=== PATIENT | female | born 1955 | race Two or more races ===

== ENCOUNTER 2023-11-06 12:21 | Emergency (ER) | payer SELFPAY ==
--- NOTE | ~2023-11-06 | CT_ITS ---
EXAMINATION: CT CHEST WITHOUT CONTRAST CLINICAL INFORMATION: Left chest, left nipple pain and discharge COMPARISON: None available. TECHNIQUE: Multidetector volumetric CT imaging of the chest was done. Axial MIP volume rendering provided. Sagittal and coronal reformatted images were obtained. This CT examination was performed using dose optimization techniques as appropriate, variously including the following: *Automated exposure control *Adjustment of mA and/or kV according to patient size (this includes techniques or standardized protocols for targeted exams where dose is matched to indication/reason for exam; i.e. extremities or head) *Use of iterative reconstruction technique DLP: 253 mGy-cm FINDINGS: LUNGS: Sagittally oriented linear atelectasis is seen along the medial pleural border of bilateral lung bases. PLEURA: No pleural effusion or pneumothorax is seen. PERICARDIUM: No pericardial effusion is seen. MEDIASTINUM AND SAE: Inadequate evaluation of the mediastinal and hilar lymph nodes due to absence of IV contrast filling the surrounding blood vessels. TRACHEOBRONCHIAL TREE: Trachea and bilateral mainstem bronchi are patent. THORACIC AORTA: The thoracic aorta is normal in size and smoothly patent. CORONARY ARTERY CALCIFICATIONS: None PULMONARY ARTERIES: The main pulmonary arteries appear to be normal in size. CHEST WALL AND LOWER NECK: The right nipple is inverted. The left nipple is inverted with subtle asymmetric lateral alveolar skin thickening. There is otherwise no asymmetric suspicious mass lesion in the subareolar region. No abnormally enlarged lymph nodes could be found. The subcutaneous and muscular chest wall are intact with no focal lesion. No abnormal mass lesion could be seen in the visualized lower neck. BONES: Multilevel level bridging anterior syndesmophytes forming flow ossification is seen in the thoracic spine, consistent with diffuse idiopathic skeletal hyperostosis. No fracture or dislocation. No focal bone lesion diagnostic of metastatic disease could be seen in the thorax. VISUALIZED UPPER ABDOMEN: Bilateral adrenal glands are not enlarged. CT/CT chest wo IV con IMPRESSION: 1. No specific breast mass or nipple abscess could be seen. 2. Bilateral medial subpleural subsegmental atelectasis or fibrotic scar is seen. 3. No evidence of thoracic aortic aneurysm is seen. Fleischner guidelines were followed.
--- NOTE | ~2023-11-06 | US_ITS ---
EXAMINATION: US DIAGNOSTIC ULTRASOUND BREAST, LEFT CLINICAL INFORMATION: Blood from left nipple. Concern for abscess.. COMPARISON: None available. TECHNIQUE: Ultrasound of the breast is performed with real-time burton scale imaging and color Doppler. FINDINGS: There are dilated ducts leading to the nipple in the medial side of the breast. Echogenic material within these dilated ducts. Largest measures 2 cm in length by 0.5 x 0.6 cm and may be a mass. On color Doppler there is no vascular flow within this material. No abscess. No focal fluid collection. Results are discussed with the patient at time of visit. US/US breast LT limited IMPRESSION: 1. Dilated ducts leading to the nipple in the medial side of the breast. There is echogenic material within these dilated ducts. Largest measures 2 x 0.5 x 0.6 cm and may be a mass. No abscess. 2. BI-RADS 4: Suspicious. ASSESSMENT: BI-RADS 4 - Suspicious finding RECOMMENDATION: Surgical Consult This patient's information was entered into a reminder system with a target due date for their next mammogram.
[2023-11-06 12:24] VITALS: BP 177/81; PULSE 91; RESP 18; TEMP 36.1; O2SAT 95; BMI 30.6
--- NOTE | 2023-11-06 12:24 | ED_ITS ---
HPI - General Adult General Chief complaint: General Medical Stated complaint: L breast pain/Vomiting Time Seen by Provider: 11/06/23 20:40 Source: patient and medical interpreter (all interactions with this patient were facilitated with an [facility] interpreter for the deaf) Mode of arrival: ambulatory Limitations: language barrier (all interactions with this patient were facilitated with an [facility] interpreter for the deaf) History of Present Illness HPI narrative: Patient is a 68 year old assigned female at with no reported medical history presenting to the emergency department today with pain in her left breast and bloody discharge from her left nipple. Patient states that over the last 3 days, she has had left breast pain and bloody discharge from her left nipple. Patient states that she has a family history of breast cancer. Patient states that [place] Patient denies any dizziness, lightheadedness, abdominal pain, nausea, vomiting, fever, chills, blurry vision, double vision, loss of vision, chest pain, difficulty breathing, shortness of breath, back pain, night sweats, pain with urination, increased urinary frequency, increased urinary urgency, blood in her urine or stool, syncope or a near syncopal episode, recent trauma or falls, bowel incontinence, bladder incontinence, bowel retention, bladder retention, or any other complaints at this time. Onset (ago): day(s) (3) Location: left (breast) Severity: mild Relieving factors: none Exacerbating factors: none Associated symptoms: denies other symptoms Treatments prior to arrival: none Related Data Allergies Allergy/AdvReac Type Severity Reaction Status Date / Time No Known Allergies Allergy Verified 11/06/23 12:28 Review of Systems 2 Constitutional: Constitutional: Reports no additional constitutional complaints, Denies chills, Denies fever(s) and Denies night sweats Eyes: Eyes: Reports no additional eye complaints, Denies blurry vision, Denies change in vision, Denies diplopia, Denies eye discharge, Denies loss of vision and Denies eye pain ENT: Denies dizziness Cardiovascular: Cardiovascular: Reports no additional cardiovascular complaints, Denies chest pain, Denies lightheadedness, Denies Loss of Consciousness and Denies dyspnea Respiratory: Respiratory: Reports no additional respiratory complaints and Denies dyspnea Gastrointestinal: Gastrointestinal: Reports no additional gastrointestinal complaints, Denies abdominal pain, Denies melena, Denies hematochezia, Denies change in bowel habits and Denies change in stool character Genitourinary: Genitourinary: Denies hematuria, Denies urinary frequency, Denies dysuria, Denies urinary incontinence, Denies urinary hesitancy and Denies urinary urgency Comments: left breast pain, left nipple discharge Musculoskeletal: Musculoskeletal: Reports no additional musculoskeletal complaints, Denies numbness and Denies tingling Neurologic: Denies dizziness, Denies loss of vision, Denies numbness and Denies tingling Psychiatric: Psychiatric: Reports no additional psychiatric complaints Endocrine: Endocrine: Reports no additional endocrine complaints Hematologic/Lymphatic: Hematologic/Lymphatic: Reports no additional hematologic/lymphatic complaints Allergic/Immunologic: Allergic/Immunologic: Reports no additional allergic/immunologic complaints [facility] Past Medical History Attestation statement: The following information was validated with the patient. Source: old records reviewed and nursing notes reviewed Social History Social History Smoked in Last 30 Days: No Use of substances other than those prescribed or required for medical reasons: No Advance Directives: No Advance Directives Information Provided: No Do you have a plan to hurt others: No Plan Physical Exam ED Vital Signs: Vital Signs - 24 hr 11/06/23 12:24 11/06/23 16:38 Temperature 97 F 96.8 F Pulse Rate 91 82 Respiratory Rate 18 16 Blood Pressure 177/81 H 159/87 H Pulse Oximetry 95 98 Oxygen Delivery Method Room Air Room Air BMI result Body Mass Index 30.6 Const General: cooperative, no acute distress, alert and awake Nutritional Appearance: well nourished Orientation/consciousness: patient oriented x3 Limitations: no limitations [facility] Head: Yes normal to inspection and Yes atraumatic Ears: hearing grossly normal bilaterally and external ears normal General nose exam: Normal external nose present, no nasal discharge noted and no epistaxis Face and sinus: Yes normal facial exam, No abrasion and No laceration Mouth: Normal oral and palatal mucosa present, no drooling and no muffled voice Eyes General: appearance normal, both eyes and all related structures Periorbital: periorbital findings normal Eyelids: Yes eyelids normal Conjunctivae: conjunctivae normal Pupils: Equal, round and reactive pupils present EOM: EOMs intact bilaterally Neck Neck: Yes normal visual inspection, Yes full ROM and Yes no lymphadenopathy Chest Chest palpation & inspection: normal inspection of the chest Resp Effort & Inspection: normal respiratory effort and able to speak in complete sentences GI Inspection: Yes normal to inspection Neuro General: patient oriented x3 and moves all extremities Cranial nerves: Yes Equal, round and reactive pupils present Cognition (Neuro): normal cognition Motor exam (neuro): 5/5 motor strength present throughout Sensory Exam: Normal double simultaneous stimulation for sensation Coordination: [id number]-[id number] test normal Extrem General: Yes normal to inspection, Yes full ROM and Yes capillary refill normal Psych Appearance: grossly normal Mental Status: mental status grossly normal Affect: normal affect Attitude: cooperative Thought process: Normal thought process present Thought content: Normal thought content present Insight: Good insight present (Psych) Course Course Course Narrative: This is an RME: Additional HPI, ROS, PE not included below will be deferred to primary provider. 68 yo f presents with l sided breast pain with bloody discharge from nipple X 3 days. Family history of breast cancer, no personal history of breast cancer. Reports stinging. Medical Decision Making Medical Decision Making MDM Narrative: Patient is a 68 year old assigned female at with no reported medical history presenting to the emergency department today with left breast pain and bloody discharge from the nipple. Patient's physical exam was unremarkable. Patient's blood work was unremarkable. Patient's chest CT showed no acute process. Patient's breast ultrasound showed dilated ducts leading to the nipple in the medial side of the breast with echogenic material within - BI-RADS 4: suspicious. I explained my physical exam findings as well as all test results to the patient. I answered all questions asked by the patient. I stressed the importance of the patient taking her medication as prescribed. I stressed the importance of the patient following up with her primary care provider, a general surgeon, and an oncologist. I stressed the importance of the patient returning to the emergency department immediately if her symptoms were to worsen or if she were to develop any dizziness, shortness of breath, difficulty breathing, chest pain, blurry vision, loss of vision, nausea, vomiting, abdominal pain, fever, chills, back pain, or any other complaints. Patient verbalized agreement and understanding with this treatment plan and discharge. Differential Diagnosis Differential Diagnoses: The differential diagnosis associated with the presentation includes Breast cancer Breast mass Nipple discharge Admission/Observation Consideration of admission/observation: Escalation of care including admission/observation considered Patient would have been admitted to the hospital had her work up had any findings where hospital admission was appropriate and her clinical presentation warranted hospital admission. Lab Data [facility] Lab Attestation statement: I reviewed the patient's lab results. My interpretation of these results are in the MDM Rationale portion of this note. 11/06/23 15:21 11/06/23 15:21 Labs: Lab Results 11/06/23 Range/Units 15:21 WBC 8.1 (4.8-10.8) X10*3/uL RBC 5.03 (4.20-5.50) X10*6/uL Hgb 13.6 (12.0-16.0) g/dl Hct 38.4 (37.0-47.0) % MCV 76.3 L (80.0-98.0) fL MCH 27.0 (27.0-33.0) pg MCHC 35.4 H (31.0-35.0) g/dl RDW 15.2 (11.0-16.0) % Plt Count 257 (160-400) X10*3/uL MPV 10.6 (9.4-12.3) fL Immature Gran % (Auto) 0.1 (0.0-0.4) % Neut % (Auto) 43.1 L (45-73) % Lymph % (Auto) 47.5 H (20-40) % Boyle % (Auto) 7.8 (2-11) % Eos % (Auto) 1.1 (0-4) % Baso % (Auto) 0.4 (0-2) % Lymph # (Auto) 3.8 (1.2-4.9) X10*3/uL Boyle # (Auto) 0.6 (0.1-1.2) X10*3/uL Eos # (Auto) 0.1 (0.0-0.4) X10*3/uL Baso # (Auto) 0.0 (0.0-0.2) X10*3/uL Abs Immat Gran (auto) 0.01 (0.00-0.03) X10*3/uL Absolute Neuts (auto) 3.5 (2.0-8.3) x10*3/uL Absolute Nucleated RBC 0.000 (0.0-0.012) X10*3/uL Nucleated RBC % (auto) 0.0 (0.0-0.2) /100WBC ESR 14 (0-20) MM/HR Sodium 142 (135-145) mmol/L Potassium 4.5 (3.3-5.1) mmol/L Chloride 105 (96-108) mmol/L Carbon Dioxide 26 (22-29) mmol/L Anion Gap 16 (12-20) BUN 14 (9-16) mg/dL Creatinine 0.77 (0.5-1.4) mg/dL Estim Creat Clear Calc 70.0 Estimated GFR > 60 Random Glucose 94 (60-115) mg/dL Calcium 10.2 (8.4-10.2) mg/dL Total Bilirubin 0.4 (0.0-1.0) mg/dL AST 20 (5-31) U/L ALT 12 (0-31) U/L Alkaline Phosphatase 82 (39-117) U/L C-Reactive Protein 0.18 (< or = 0.50) mg/dL Total Protein 8.9 H (6.5-8.0) g/dL Albumin 4.5 (3.5-5.0) g/dL Independent Interpretation I performed an independent interpretation of an: Ultrasound and CT Scan Interpretation: My interpretation is in agreement with the radiologist's impression of these imaging studies. - EXAMINATION: US DIAGNOSTIC ULTRASOUND BREAST, LEFT CLINICAL INFORMATION: Blood from left nipple. Concern for abscess.. COMPARISON: None available. TECHNIQUE: Ultrasound of the breast is performed with real-time burton scale imaging and color Doppler. FINDINGS: There are dilated ducts leading to the nipple in the medial side of the breast. Echogenic material within these dilated ducts. Largest measures 2 cm in length by 0.5 x 0.6 cm and may be a mass. On color Doppler there is no vascular flow within this material. No abscess. No focal fluid collection. Results are discussed with the patient at time of visit. US/US breast LT limited IMPRESSION: 1. Dilated ducts leading to the nipple in the medial side of the breast. There is echogenic material within these dilated ducts. Largest measures 2 x 0.5 x 0.6 cm and may be a mass. No abscess. 2. BI-RADS 4: Suspicious. ASSESSMENT: BI-RADS 4 - Suspicious finding RECOMMENDATION: Surgical Consult This patient's information was entered into a reminder system with a target due date for their next mammogram. Dictated By: Jamie Wiggins MD Signed By: Electronically signed by Jamie Wiggins MD 11/06/231953 - EXAMINATION: CT CHEST WITHOUT CONTRAST CLINICAL INFORMATION: Left chest, left nipple pain and discharge COMPARISON: None available. TECHNIQUE: Multidetector volumetric CT imaging of the chest was done. Axial MIP volume rendering provided. Sagittal and coronal reformatted images were obtained. This CT examination was performed using dose optimization techniques as appropriate, variously including the following: *Automated exposure control *Adjustment of mA and/or kV according to patient size (this includes techniques or standardized protocols for targeted exams where dose is matched to indication/reason for exam; i.e. extremities or head) *Use of iterative reconstruction technique DLP: 253 mGy-cm FINDINGS: LUNGS: Sagittally oriented linear atelectasis is seen along the medial pleural border of bilateral lung bases. PLEURA: No pleural effusion or pneumothorax is seen. PERICARDIUM: No pericardial effusion is seen. MEDIASTINUM AND SAE: Inadequate evaluation of the mediastinal and hilar lymph nodes due to absence of IV contrast filling the surrounding blood vessels. TRACHEOBRONCHIAL TREE: Trachea and bilateral mainstem bronchi are patent. THORACIC AORTA: The thoracic aorta is normal in size and smoothly patent. CORONARY ARTERY CALCIFICATIONS: None PULMONARY ARTERIES: The main pulmonary arteries appear to be normal in size. CHEST WALL AND LOWER NECK: The right nipple is inverted. The left nipple is inverted with subtle asymmetric lateral alveolar skin thickening. There is otherwise no asymmetric suspicious mass lesion in the subareolar region. No abnormally enlarged lymph nodes could be found. The subcutaneous and muscular chest wall are intact with no focal lesion. No abnormal mass lesion could be seen in the visualized lower neck. BONES: Multilevel level bridging anterior syndesmophytes forming flow ossification is seen in the thoracic spine, consistent with diffuse idiopathic skeletal hyperostosis. No fracture or dislocation. No focal bone lesion diagnostic of metastatic disease could be seen in the thorax. VISUALIZED UPPER ABDOMEN: Bilateral adrenal glands are not enlarged. CT/CT chest wo IV con IMPRESSION: 1. No specific breast mass or nipple abscess could be seen. 2. Bilateral medial subpleural subsegmental atelectasis or fibrotic scar is seen. 3. No evidence of thoracic aortic aneurysm is seen. Fleischner guidelines were followed. Dictated By: Isauro Corona Signed By: Electronically signed by Isauro Corona 11/06/23 8016 Radiology Impression Discussion of test interpretation with radiology: I have reviewed the radiologist's reading. Discharge Plan Discharge Clinical Impression: Breast mass, Discharge from nipple Patient Disposition: Home, Self-Care Instructions: Nipple Discharge (ED), Breast Mass (ED) Additional Instructions: Follow up with your primary care provider, a general surgeon, and an oncologist. Return to the emergency department immediately if your symptoms worsen or if you develop any dizziness, shortness of breath, difficulty breathing, chest pain, blurry vision, loss of vision, nausea, vomiting, abdominal pain, fever, chills, back pain, or any other complaints. Referrals: [facility] General Surgeons [Provider Group] (Call to establish and follow up with a general surgeon.) [facility] Family Medicine [Provider Group] (Call to establish and follow up with a primary care provider. If you already have a primary care provider, please follow up with them.) [facility] Primary [facility] [Provider Group] [facility] Primary Kay Peters [Provider Group] [facility] Oncology/Hematology [Provider Group] (Call to establish and follow up with an oncologist.) Print Language: Yakut
[2023-11-06 15:25] LABS: MANUAL DIFF FLAG NO
[2023-11-06 15:26] LABS: Basophils Percent Auto 0.4 % (0-2); Eosinophils Absolute Auto 0.1 X10*3/uL (0.0-0.4); Eosinophils Percent Auto 1.1 % (0-4); Hematocrit 38.4 % (37.0-47.0); Hemoglobin 13.6 g/dl (12.0-16.0); Imm Gran Abs Auto 0.01 X10*3/uL (0.00-0.03); Imm Gran Pct Auto 0.1 % (0.0-0.4); Lymphocytes Absolute Auto 3.8 X10*3/uL (1.2-4.9); Lymphocytes Percent Auto 47.5 % (20-40); Mean Corpuscular HGB Conc 35.4 g/dl (31.0-35.0); Mean Corpuscular Volume 76.3 fL (80.0-98.0); Mean Platelet Volume 10.6 fL (9.4-12.3); Monocytes Absolute Auto 0.6 X10*3/uL (0.1-1.2); Monocytes Percent Auto 7.8 % (2-11); Neutrophils Absolute Auto 3.5 x10*3/uL (2.0-8.3); Neutrophils Percent Auto 43.1 % (45-73); Platelet Count 257 X10*3/uL (160-400); Red Blood Count 5.03 X10*6/uL (4.20-5.50); Red Cell Distribution Width 15.2 % (11.0-16.0); White Blood Count 8.1 X10*3/uL (4.8-10.8)
[2023-11-06 15:53] LABS: Alanine Aminotransferase 12 U/L (0-31); Albumin Level 4.5 g/dL (3.5-5.0); Alkaline Phosphatase 82 U/L (39-117); Anion Gap 16 (12-20); Aspartate Amino Transferase 20 U/L (5-31); Bilirubin Total 0.4 mg/dL (0.0-1.0); Blood Urea Nitrogen 14 mg/dL (9-16); C Reactive Protein 0.18 mg/dL (< or = 0.50); Calcium 10.2 mg/dL (8.4-10.2); Carbon Dioxide 26 mmol/L (22-29); Chloride 105 mmol/L (96-108); Estimated Glomerular Filt Rate > 60; Glucose Random 94 mg/dL (60-115); Potassium 4.5 mmol/L (3.3-5.1); Sodium 142 mmol/L (135-145); Total Protein 8.9 g/dL (6.5-8.0)
[2023-11-06 16:34] LABS: Erythrocyte Sedimentation Rate 14 MM/HR (0-20)
[2023-11-06 16:38] VITALS: BP 159/87; PULSE 82; RESP 16; TEMP 36; O2SAT 98
[2023-11-06 21:53] VITALS: BP 164/80; PULSE 76; RESP 20; TEMP 37.1; O2SAT 97
== END 2023-11-06 21:54 | disposition home or self-care (01) ==
PROVIDERS: Physician Assistant; Emergency Provider Emergency Medicine
DX: N64.4 Mastodynia (principal); R11.2 Nausea with vomiting, unspecified; N64.52 Nipple discharge; M54.6 Pain in thoracic spine; Z79.899 Other long term (current) drug therapy
CPT/HCPCS: 36415; 71250; 76642; 80053; 85025; 85652; 86140; 99284

== ENCOUNTER 2023-11-15 11:39 | Outpatient (AMB) | payer MEDICAID, SELFPAY ==
--- NOTE | 2023-11-15 11:41 | MHC.OFFVIS ---
Vital Signs 11/15/23 11:45 Height 5 ft 4 in Weight 178 lb 9.191 oz BMI 30.6 Intake Visit Reasons: breast mass, nipple discharge Intake Note: This patient presents for [facility] emergency department follow-up for breast mass, nipple discharge. Pt c/o;reports b/l breast pain, reports discharge and bleeding from nipple. 11/06/2023-Breast US Knockdown Worker Required: Yes Knockdown Worker Language: Airways Operations Specialist Name: Nataly Information Interpreted: non-clinical & clinical Accompanied by: Other Relationship Allergies No Known Allergies Allergy (Verified 11/15/23 11:45) Medication List - Last Reconciled 11/15/23 by Mehdi Underwood MD No Known Home Meds HPI HPI breast mass, nipple discharge: Details: [age] year old female referred for left nipple discharge and bleeding. She has had this for over a year. She says that she underwent a biopsy in [facility] [place] about a year ago and she was told that this was ?an infection. She continues to have this problem on and off for the past year. She went to the ER last week and she was referred to me. She does not really feel a palpable mass. She does complain of some pain on the nipple-areolar area on the left side. Her menarche was at the age of 11. She had 9 pregnancies. She says 1 of her siblings may have had breast cancer. [facility] Medical History Nipple discharge, bloody Review of Systems Const Denies chills and Denies fever(s) Card Denies chest pain, Denies dyspnea and Denies dyspnea on exertion Resp Denies cough, Denies dyspnea and Denies dyspnea on exertion GI Denies hematochezia and Denies change in bowel habits Denies hematuria Musc Denies back pain and Denies limited range of motion Neuro Denies focal weakness and Denies convulsions Psych Denies depression and Denies mood swings Physical Exam Vital Signs: BMI result Body Mass Index 30.6 Const General: comfortable and no acute distress Orientation/consciousness: patient oriented x3 Neck Neck: Yes no lymphadenopathy Chest Other: No palpable breast mass, no nipple or skin changes, no axillary lymphadenopathy, very small amount blood noted on the left nipple when squeezed Resp Auscultation: clear to auscultation bilaterally Cardio Rhythm: regular rhythm GI Palpation (GI): Soft to palpation, nontender and no guarding Neuro General: patient oriented x3 Assessment & Plan Assessment & Plan (1) Nipple discharge, bloody: Code(s): N64.52 - Nipple discharge Category: Medical Plan: She has never had mammogram. I do not feel any mass at this time. The nipple discharge this reproducible. I am going to send her for a diagnostic mammogram for both breasts. I will see her again in the office thereafter. She apparently had undergone a biopsy in the [place] a year ago for this same problem and she was told this was ?an infection?. Her daughter was with her during the visit and they seemed to understand and are comfortable with the plan. Orders: Orders MM tomosynthesis diagnostic BI Today N64.52 - Nipple discharge Coding Level of Care Code New Pt Level 3 (18332) Diagnoses Nipple discharge, bloody N64.52
[2023-11-15 11:45] VITALS: BMI 30.6
== END 2023-11-15 11:59 | disposition home or self-care (01) ==
PROVIDERS: Visit Provider Surgery
DX: N64.52 Nipple discharge (principal)
CPT/HCPCS: 99203

== ENCOUNTER → 2023-11-15 11:39 | Outpatient (BNVA) | payer MEDICAID, SELFPAY | PROVIDERS: Visit Provider Surgery | DX: N64.52 Nipple discharge (principal) | CPT/HCPCS: 99202 ==

== ENCOUNTER → 2023-11-23 11:00 | Outpatient (BNV) | payer MEDICAID, SELFPAY | PROVIDERS: Visit Provider Radiology Diagnostic Radiology | DX: N64.52 Nipple discharge (principal) | CPT/HCPCS: 77062; 77066 ==

== ENCOUNTER 2023-11-23 11:11 | Outpatient (REF) | payer MEDICAID, SELFPAY ==
--- NOTE | ~2023-11-23 | MM_ITS ---
EXAMINATION: MM DIAGNOSTIC DIGITAL BREAST TOMOSYNTHESIS, BILATERAL CLINICAL INFORMATION: Bloody left nipple discharge over last 1 year. Recent left retroareolar ultrasound in the ER 11/06/2023. COMPARISON: Mammography: No prior. Baseline exam. Ultrasound left breast 11/06/2023. TECHNIQUE: Digital breast tomosynthesis is performed in both the craniocaudal and mediolateral oblique views along with computer-aided detection (CAD). Synthesized 2D images are generated from the tomosynthesis. In addition, 2-D spot magnification CC and ML views of the left retroareolar region were performed. FINDINGS: There are scattered areas of fibroglandular density (ACR BI-RADS breast composition Category b). There are bilateral vascular calcifications. There is mild duct ectasia on the right, and more significant duct ectasia on the left with a few associated microcalcifications. Ultrasound of this region demonstrated an intraductal mass or debris. Recommendation is for ultrasound-guided biopsy of this intraductal abnormality. Otherwise, no suspicious masses, suspicious grouped microcalcifications, or areas of architectural distortion in either breast. MM/MM tomosynthesis diagnostic BI IMPRESSION: Left greater than right retroareolar duct ectasia, of which on the left retroareolar ultrasound from the emergency department 11/06/2023, demonstrated an intraductal mass versus debris. Ultrasound-guided biopsy is recommended as this is suspicious for papilloma. There are no findings suspicious for malignancy in the right breast. Findings and recommendations were discussed with the patient with the aid of a solution consultant. ASSESSMENT: BI-RADS BI-RADS 4 - Suspicious finding RECOMMENDATION: Biopsy recommended
== END 2023-11-23 11:12 | disposition home or self-care (01) ==
LOC: HO.MAMMO 11:11
PROVIDERS: Visit Provider Surgery
DX: N64.52 Nipple discharge (principal)
CPT/HCPCS: 77062; 77066

== ENCOUNTER → 2023-11-27 10:00 | Outpatient (BNV) | payer MEDICAID, SELFPAY | PROVIDERS: Visit Provider Radiology Diagnostic Radiology | DX: N63.20 Unspecified lump in the left breast, unspecified quadrant (principal); N64.52 Nipple discharge | CPT/HCPCS: 19083; 77065 ==

== ENCOUNTER 2023-11-27 10:12 | Outpatient (REF) | payer MEDICAID, SELFPAY ==
--- NOTE | ~2023-11-27 | US_ITS ---
PROCEDURE: US GUIDED BREAST BIOPSY, LEFT CLINICAL INFORMATION: Patient complaining of bloody nipple discharge over last 1 year. Recent left retroareolar ultrasound in the emergency department 11/06/2023 demonstrated debris and/or a mass within a dilated duct medial to the left nipple. This was targeted for biopsy to exclude papilloma. COMPARISON: Mammography 11/23/2023, left breast ultrasound 11/06/2023. PROCEDURAL DETAILS: The details of the procedure, as well as the risks, benefits, and alternatives to the procedure were explained to the patient in detail and all of her questions were answered, after which written informed consent was obtained. Site and side were confirmed. Prior to the procedure, sonography revealed the immediately dilated retroareolar duct with internal debris versus mass.. A time-out was performed, the lesion intended for biopsy was targeted, and the skin of the overlying breast was then marked, prepped and draped in the usual sterile fashion. Using sonographic guidance, sterile technique, and 1% lidocaine without epinephrine for local anesthesia, multiple core biopsies were obtained through the targeted area with a 14G spring loaded ACS Clothingera core biopsy device. There was real-time confirmation of appropriate needle passage. Sampling was documented. At the completion of tissue sampling, a single ribbon-shaped metallic clip was deposited at the biopsy site. There was no evidence of immediate complication. SPECIMEN: 5 somewhat fragmented core samples were obtained DIGITAL POST-PROCEDURE MAMMOGRAPHY: Breast density: The tissue contains scattered areas of fibroglandular density. BI-RADS version 5, category B. There are no new mammographic findings demonstrated. The postprocedure 2-view direct digital mammogram reveals satisfactory and accurate positioning of the biopsy clip. No hematoma present. The patient tolerated the procedure well and, after assuring adequate hemostasis, was discharged in good condition after reviewing postbiopsy breast care instructions. Final pathology results are pending. US/US breast ndl core biopsy LT IMPRESSION: 1. No immediate complication from ultrasound-guided percutaneous biopsy left medial retroareolar intraductal mass. 2. Ultrasound was used to localize and guide marker clip placement. 3. The 2-view direct digital postprocedure mammogram reveals satisfactory positioning of the biopsy clip. 4. Final pathology results are pending. A separate report with final recommendations will be issued once these results are made available. .
[2023-11-27] MEDS: Sodium Bicarbonate 8.4% 50 MEQ/50 ML VIAL SUBCUT (12:02)
[2023-11-27] MEDS: Lidocaine HCl 1 % 20 ML VIAL 9 ML SUBCUT (12:03)
== END 2023-11-27 10:13 | disposition home or self-care (01) ==
LOC: HO.MAMMO 10:12
PROVIDERS: Visit Provider Surgery
DX: N64.52 Nipple discharge (principal)
CPT/HCPCS: 19083; 77061; 77065; 88305; A4648; C1894

== ENCOUNTER 2023-12-20 11:24 | Outpatient (AMB) | payer MEDICAID, SELFPAY ==
--- NOTE | 2023-12-20 11:30 | MHC.OFFVIS ---
Vital Signs 12/20/23 11:36 Height 5 ft 4 in Weight 178 lb 9.191 oz BMI 30.6 Intake Visit Reasons: breast bx results Intake Note: This patient presents for a follow-up breast biopsy results. Patient c/o; reports no complaints. 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 She actually had a mammogram last Nov, 2023 and this showed question of a mass in the retroareolar area. She therefore underwent an ultrasound biopsy for this. She had been initially referred because of left nipple discharge and bleeding. She has had this for over a year. She says that she underwent a biopsy in [facility] about a year ago and she was told that this was ?an infection. She continues to have this problem on and off for the past year. She does not really feel a palpable mass. She does complain of some pain on the nipple-areolar area on the left side. Her menarche was at the age of 11. She had 9 pregnancies. She says 1 of her siblings may have had breast cancer. [facility] Medical History (Updated 12/20/23 @ 11:35 by Mehdi Underwood MD) Intraductal papilloma Nipple discharge, bloody Review of Systems Const Denies chills and Denies fever(s) Card Denies chest pain, Denies dyspnea and Denies dyspnea on exertion Resp Denies cough, Denies dyspnea and Denies dyspnea on exertion GI Denies hematochezia and Denies change in bowel habits Denies hematuria Musc Denies back pain and Denies limited range of motion Neuro Denies focal weakness and Denies convulsions Psych Denies depression and Denies mood swings Physical Exam Const General: comfortable and no acute distress Orientation/consciousness: patient oriented x3 Neck Neck: Yes no lymphadenopathy Chest Other: No palpable breast masses, no axillary lymphadenopathy, no hematoma from her previous biopsy on the left breast Resp Auscultation: clear to auscultation bilaterally Cardio Rhythm: regular rhythm GI Palpation (GI): Soft to palpation, nontender and no guarding Neuro General: patient oriented x3 Assessment & Plan Assessment & Plan (1) Intraductal papilloma: Code(s): D36.9 - Benign neoplasm, unspecified site Category: Medical Plan: She had undergone biopsy of this area on the left breast and this showed an intraductal papilloma. I therefore told her that in view of the associated high-grade lesions along with her bloody nipple discharge, it may be best to proceed with lumpectomy with localization. I reviewed with her the technique of this procedure. I reviewed the risks including but not limited to bleeding, infections, hematoma, postop pain, as well as the benefits and alternatives. She understands and wants to proceed. However, she is leaving for a vacation to the [facility] in 3 weeks, and says that she will be staying therefore about 5 months. She says she plans to schedule for this procedure when she gets back from the [facility]. She says she understands that be associated high-grade lesions with this pathology. Coding Level of Care Code Est Pt Level 3 (36159) Diagnoses Intraductal papilloma D36.9
[2023-12-20 11:36] VITALS: BMI 30.6
== END 2023-12-20 11:46 | disposition home or self-care (01) ==
PROVIDERS: Visit Provider Surgery
DX: D36.9 Benign neoplasm, unspecified site (principal)
CPT/HCPCS: 99214

== ENCOUNTER → 2023-12-20 11:24 | Outpatient (BNVA) | payer MEDICAID, SELFPAY | PROVIDERS: Visit Provider Surgery | DX: D36.9 Benign neoplasm, unspecified site (principal) | CPT/HCPCS: 99212 ==

== ENCOUNTER 2024-01-10 09:35 | Outpatient (AMB) | payer MEDICAID, SELFPAY ==
[2024-01-10 10:05] VITALS: BP 152/88; PULSE 80; O2SAT 98; BMI 30.6
--- NOTE | 2024-01-10 10:05 | A.OFFPC_ITS ---
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 Language: British Allergies No Known Allergies Allergy (Verified 01/10/24 10:05) Medication List - Last Reconciled 01/10/24 by Yesica Henry MD No Known Home Meds Tobacco use date assessed: 01/10/24 Fall risk assessment: No Falls in past year Last assessed Fall Risk: 01/10/24 Dental Screening Dental Screen Date: 01/10/24 Did you have a dental visit in the last 12 months?: No Did you have a dental problem in the last 6 months where you did not have access to dental care?: No Was dental information given to patient?: No HPI NEW PATIENT HPI Details 68-year-old obese female being seen for the 1st time. Review of the notes had bloody nipple discharge in 11/27/2023 having a question of a mass in the retroareolar area had ultrasound biopsy in the [place] 1 year ago and there was question of infection. Patient did undergo another biopsy concern about high-grade lesion intraductal papilloma advised lumpectomy. However going vacation in the [place] and staying there for 5 months. Up-to-date recommendation Excision is recommended in cases of atypia, a palpable mass lesion, bloody nipple discharge (primarily for symptomatic relief), and/or pathology-imaging discordance, whereas small incidental benign solitary papillomas without atypia and with imaging concordance may be offered close clinical and imaging follow-up. daughter with patient Golden [id number] interpret [facility] Medical History (Updated 01/10/24 @ 10:36 by Yesica Henry MD) Obesity (BMI 30.0-34.9) Intraductal papilloma Nipple discharge, bloody Social History (Updated 01/10/24 @ 10:32 by Yesica Henry MD) Housing: Apartment Alcohol intake: never Patient Tobacco Use Status: Never used Tobacco Tobacco use type: Cigarette e-Cigarette/Vaping Use: Never Used Second Hand Smoke Exposure: No Current occupational status: unemployed, retired and disabled Cognitive needs: No Hearing needs: No Vision needs: No Questionnaire PHQ-9 Over the last 2 weeks, how often have you been bothered by any of the following problems? 1. Little interest or pleasure in doing things: not at all 2. Feeling down, depressed, or hopeless: not at all 3. Trouble falling or staying asleep, or sleeping too much: not at all 4. Feeling tired or having little energy: not at all 5. Poor appetite or overeating: not at all 6. Feeling bad about yourself - or that you are a failure or have let yourself or your family down: not at all 7. Trouble concentrating on things, such as reading the newspaper or watching television: not at all 8. Moving or speaking so slowly that other people could have noticed. Or the opposite - being so fidgety or restless that you have been moving around a lot more than usual: not at all 9. Thoughts that you would be better off or of hurting yourself in some way: not at all Total score: 0 Depression Screening Interpretation: Negative Depression Screening Done: Yes Source: Developed by Drs. Nito Hendricks, Brigette Last, Gordo Lua and colleagues, with an educational hue from [employer]. Thrive Questionnaire Date Thrive assessed: 01/10/24 I am a: Patient What is your living situation today?: I have a steady place to live Within the past 12 months, did the food you bought not last and you didn't have the money to get more?: Never true Within the past 12 months, did you worry whether your food would run out before you got money to buy more?: Never true Do you have trouble paying for medicines?: No Do you have trouble getting transportation to medical appointments?: No Do you have trouble paying your heating and electricity bill?: No Do you have trouble taking care of your child, family member or friend?: No Do you have trouble with day-to-day activities such as bathing, preparing meals, shopping, managing finances, etc.?: No Are you currently unemployed and looking for a job?: No Are you interested in more education?: No Currently or been in a relationship where the following occur: No concerns reported THRIVE Score: 0 AUDIT C Alcohol Use Questionnaire (AUDIT-C) 1. How often do you have a drink containing alcohol?: Never Total Score: 0 GILLES-7 AMB Questionnaire GILLES-7 Date GILLES - 7 assessed: 01/10/24 Feeling nervous, anxious, or on edge: 0 = Not at all Not being able to stop or control worryin = Not at all Worrying too much about different things: 0 = Not at all Trouble relaxin = Not at all Being so restless that it is hard to sit still: 0 = Not at all Becoming easily annoyed or irritable: 0 = Not at all Feeling afraid as if something awful might happen: 0 = Not at all Total GILLES-7 score (0-4 normal; 5-9 mild; 10-14 moderate; 15-21 severe): 0 Source: Developed by Drs. Nito Hendricks, Brigette Last, Gordo Lua and colleagues, with an educational hue from [employer]. Physical exam (Primary Care) Vital Signs: Last Vital Signs Pulse 80 01/10/24 10:05 BP 152/88 H 01/10/24 10:05 Pulse Ox 98 01/10/24 10:05 Oxygen Delivery Method Room Air 01/10/24 10:05 BMI result Body Mass Index 30.6 Tobacco/Smoking Status: Tobacco use Status Tobacco use date assessed 01/10/24 01/10/24 10:08 Patient Tobacco Use Status Never used Tobacco 01/10/24 10:08 Tobacco use type Cigarette 01/10/24 10:08 e-Cigarette/Vaping Use Never Used 01/10/24 10:08 PHQ-9: PHQ-9 Score PHQ-9: Total score 0 01/10/24 10:15 Depression Screening Interpretation: Negative Thrive Assessment: Date of Thrive Assessment Date Thrive assessed 01/10/24 01/10/24 10:15 Currently or been in a relationship where the following occur: No concerns reported Const General: alert; No acute distress Eyes Conjunctivae: conjunctivae normal Resp Auscultation: clear to auscultation bilaterally Cardio Rate: regular rate Rhythm: regular rhythm GI Inspection: Yes normal to inspection Extrem General: Yes normal to inspection and No edema Results AMB Hemoglobin A1c AMB Hemoglobin A1c 6.0 % Last Edit by Jazz Madrigal CMA on 01/10/24 10 :31 Assessment and Plan Assessment & Plan (1) Intraductal papilloma: Comment: Biopsy November 2023 left Code(s): D36.9 - Benign neoplasm, unspecified site Plan: Patient has been seen by the surgeon and has recommended lumpectomy. planned trip cancelled and planned ff up with surgery (2) Obesity (BMI 30.0-34.9): Code(s): E66.9 - Obesity, unspecified Plan: diet and exercise (3) Hypertension: Code(s): I10 - Essential (primary) hypertension Plan: decrease salt intake , monitor BP, start on med (4) Impaired glucose tolerance: Code(s): R73.02 - Impaired glucose tolerance (oral) Plan: discussed about diet low in carbohydrate and decrease sweet food and keep active Orders: Orders AMB Hemoglobin A1c Today Z13.9 - Encounter for screening, unspecified Thyroid Stimulating Hormone Today R71.8 - Other abnormality of red blood cells Ferritin Today R71.8 - Other abnormality of red blood cells IRON PROFILE Today R71.8 - Other abnormality of red blood cells Comprehensive Met. Panel Today R73.02 - Impaired glucose tolerance (oral) Complete Blood Count Auto Diff Today R71.8 - Other abnormality of red blood cells Lipid Panel Today E78.00 - Pure hypercholesterolemia, unspecified, R71.8 - Other abnormality of red blood cells Vitamin B12 and Folate Today R71.8 - Other abnormality of red blood cells Vitamin D 25-OH Total Today R71.8 - Other abnormality of red blood cells Free T4 (Free Thyroxine) Today R71.8 - Other abnormality of red blood cells Reticulocyte Count Today R71.8 - Other abnormality of red blood cells ECG 12 lead EKG Today I10 - Essential (primary) hypertension Referrals General Surgery Referral D36.9 - Benign neoplasm, unspecified site Medications: New lisinopril 5 mg PO DAILY 30 tabs 3RF I10 - Essential (primary) hypertension lisinopril 5 mg PO DAILY 30 tabs 3RF I10 - Essential (primary) hypertension Coding Level of Care Code New Pt Level 4 (05244) Diagnoses Intraductal papilloma D36.9 Obesity (BMI 30.0-34.9) E66.9 Hypertension I10 Impaired glucose tolerance R73.02
[2024-01-10 10:36] VITALS: BP 160/80
== END 2024-01-10 12:49 | disposition home or self-care (01) ==
PROVIDERS: PCP Internal Medicine; Visit Provider Internal Medicine
DX: I10 Essential (primary) hypertension (principal); R73.02 Impaired glucose tolerance (oral); E66.9 Obesity, unspecified; Z68.30 Body mass index [BMI] 30.0-30.9, adult; D36.9 Benign neoplasm, unspecified site
CPT/HCPCS: 83036; 99204

== ENCOUNTER 2024-09-13 11:26 | Outpatient (AMB) | payer MEDICAID, SELFPAY ==
[2024-09-13 11:30] VITALS: BP 138/78; PULSE 97; O2SAT 98; BMI 30.5
--- NOTE | 2024-09-13 11:30 | A.OFFPC_ITS ---
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 problem Inspector Sheet Metal Parts Required: Yes Accompanied by: Daughter Allergies No Known Allergies Allergy (Verified 09/13/24 11:51) Medication List - Last Reconciled 09/13/24 by Mirta Haynes PA-C lisinopril 5 mg PO DAILY Tobacco use date assessed: 09/13/24 Fall risk assessment: No Falls in past year Last assessed Fall Risk: 09/13/24 Dental Screening Dental Screen Date: 09/13/24 Did you have a dental visit in the last 12 months?: Yes Did you have a dental problem in the last 6 months where you did not have access to dental care?: No Was dental information given to patient?: Patient has dentist HPI Follow up Breast problem HPI Details 68-year-old female with past medical his tory of intraductal papilloma, obesity, hypertension, impaired glucose tolerance last seen 01/2024 coming in for follow up. In review of the notes, she was diagnosed with an intraductal papilloma 12/2023 advised to undergo lumpectomy but has not had follow up. lead loader [id number] Michi was used for the duration of this visit. Initially evaluated by a surgeon for removal of the lump but did not proceed due to travel obligations. Symptoms have progressed, with persistent pain in the left breast and a clear discharge, occasionally thicker and associated with past bleeding. Reports additional systemic symptoms including weight loss, fatigue, and sweating. Pain worsens with wearing a bra, no alleviating factors noted. Avoids analgesics due to previous stomach irritation. [facility] Medical History Obesity (BMI 30.0-34.9) Intraductal papilloma Nipple discharge, bloody Social History Housing: Apartment Alcohol intake: never Patient Tobacco Use Status: Never used Tobacco Tobacco use type: Cigarette e-Cigarette/Vaping Use: Never Used Second Hand Smoke Exposure: No Current occupational status: unemployed, retired and disabled Cognitive needs: No Hearing needs: No Vision needs: No Questionnaire PHQ-9 Over the last 2 weeks, how often have you been bothered by any of the following problems? 1. Little interest or pleasure in doing things: not at all 2. Feeling down, depressed, or hopeless: not at all 3. Trouble falling or staying asleep, or sleeping too much: not at all 4. Feeling tired or having little energy: not at all 5. Poor appetite or overeating: not at all 6. Feeling bad about yourself - or that you are a failure or have let yourself or your family down: not at all 7. Trouble concentrating on things, such as reading the newspaper or watching te levision: not at all 8. Moving or speaking so slowly that other people could have noticed. Or the opposite - being so fidgety or restless that you have been moving around a lot more than usual: not at all 9. Thoughts that you would be better off or of hurting yourself in some way: not at all Total score: 0 Depression Screening Interpretation: Negative Depression Screening Done: Yes Source: Developed by Drs. Nito Hendricks, Brigette Last, Gordo Lua and colleagues, with an educational hue from [employer]. Thrive Questionnaire Date Thrive assessed: 09/13/24 I am a: Patient What is your living situation today?: I have a steady place to live Within the past 12 months, did the food you bought not last and you didn't have the money to get more?: Never true Within the past 12 months, did you worry whether your food would run out before you got money to buy more?: Never true Do you have trouble paying for medicines?: No Do you have trouble getting transportation to medical appointments?: No Do you have trouble paying your heating and electricity bill?: No Do you have trouble taking care of your child, family member or friend?: No Do you have trouble with day-to-day activities such as bathing, preparing meals, shopping, managing finances, etc.?: No Are you currently unemployed and looking for a job?: No Are you interested in more education?: No Currently or been in a relationship where the following occur: No concerns reported THRIVE Score: 0 AUDIT C Alcohol Use Questionnaire (AUDIT-C) 1. How often do you have a drink containing alcohol?: Never 3. How often do you have six or more drinks on one occasion?: Never Total Score: 0 GILLES-7 AMB Questionnaire GILLES-7 Date GILLES - 7 assessed: 09/13/24 Feeling nervous, anxious, or on edge: 0 = Not at all Not being able to stop or control worryin = Not at all Worrying too much about different things: 0 = Not at all Trouble relaxin = Not at all Being so restless that it is hard to sit still: 0 = Not at all Becoming easily annoyed or irritable: 0 = Not at all Feeling afraid as if something awful might happen: 0 = Not at all Total GILLES-7 score (0-4 normal; 5-9 mild; 10-14 moderate; 15-21 severe): 0 Source: Developed by Drs. Nito Hendricks, Brigette Last, Gordo Lua and colleagues, with an educational hue from [employer]. Review of Systems Const Denies body aches, Denies chills, Denies fever(s), Denies headache(s), Reports night sweats, Denies poor appetite and Reports weight loss Eyes Reports no additional complaints ENT Denies dizziness and Denies headache(s) Card Denies chest pain, Denies edema, Denies irregular heart rhythm, Denies lightheadedness and Denies dyspnea Resp Denies cough and Denies dyspnea GI Denies abdominal pain, Denies nausea and Denies vomiting Reports no additional complaints Musc Reports no additional complaints and Denies abnormal gait Skin/Breast Reports system reviewed and no additional complaints, except as documented Neuro Denies abnormal gait, Denies dizziness and Denies headache(s) Psych Reports no additional complaints Physical exam (Primary Care) Vital Signs: Last Vital Signs Pulse 97 09/13/24 11:30 BP 138/78 09/13/24 11:30 Pulse Ox 98 09/13/24 11:30 Oxygen Delivery Method Room Air 09/13/24 11:30 BMI result Body Mass Index 30.5 Tobacco/Smoking Status: Tobacco use Status Tobacco use date assessed 09/13/24 09/13/24 11:33 Patient Tobacco Use Status Never used Tobacco 09/13/24 11:33 Tobacco use type Cigarette 09/13/24 11:33 e-Cigarette/Vaping Use Never Used 09/13/24 11:33 PHQ-9: PHQ-9 Score PHQ-9: Total score 0 09/13/24 11:42 Depression Screening Interpretation: Negative Thrive Assessment: Date of Thrive Assessment Date Thrive assessed 09/13/24 09/13/24 11:33 Currently or been in a relationship where the following occur: No concerns reported Const General: cooperative, healthy appearing, comfortable and no acute distress Orientation/consciousness: patient oriented x3 HENMT Head: Yes normocephalic Ears: hearing grossly normal bilaterally General nose exam: Normal external nose present Eyes General: appearance normal, both eyes and all related structures Conjunctivae: conjunctivae normal Neck Neck: Yes full ROM and Yes no lymphadenopathy Chest Other: Pain to palpation over lateral aspect of the left breast Resp Effort & Inspection: normal respiratory effort Auscultation: clear to auscultation bilaterally, no crackles, no rales, no rhonchi and no wheezes Cardio Rate: regular rate Rhythm: regular rhythm Skin General skin exam: no rashes or lesions noted Neuro General: patient oriented x3 Gait exam (Neuro): Normal gait present Extrem General: Yes normal to inspection, Yes full ROM and No edema Psych Affect: normal affect Attitude: cooperative Insight: Good insight present (Psych) Judgement: Good judgement present (Psych) Coding Level of Care Code Est Pt Level 3 (35062) Diagnoses Impaired glucose tolerance R73.02 Hypertension I10 Obesity (BMI 30.0-34.9) E66.9 Intraductal papilloma D36.9 Assessment & Plan Assessment & Plan (1) Impaired glucose tolerance: Code(s): R73.02 - Impaired glucose tolerance (oral) Category: Medical Plan: Decrease the amount of carbohydrates such as pasta, bread, rice, and potatoes and limit the amount of sweets. Although fruits are generally healthy they should be eaten in moderation as they are still high in sugar. (2) Hypertension: Code(s): I10 - Essential (primary) hypertension Category: Medical Plan: Continue on current blood pressure medication. Avoid salt intake and encourage healthy diet and regular exercise. (3) Obesity (BMI 30.0-34.9): Code(s): E66.9 - Obesity, unspecified Category: Medical Plan: Healthy diet and regular exercise is encouraged. (4) Intraductal papilloma: Comment: Biopsy November 2023 left Code(s): D36.9 - Benign neoplasm, unspecified site Category: Medical Plan: The patient requires diagnostic imaging, including a mammogram and ultrasound, to evaluate the breast lump. Blood tests are essential to ensure systemic health is monitored. Coordination with her surgeon is imperative to reassess the need for potential surgical intervention. Care for the patient includes structured monitoring with a follow-up in one month to reassess her condition and treatment response. Symptom management is considered with limitations on analgesic use due to past side effects. Advised patient to reach out to her surgeon as soon as possible to schedule additional appointment. I also sent a message to Dr. Underwood Plan This note was constructed using voice recognition software. While every effort has been made to ensure accuracy and optical goods worker, still areas may have been included sometimes these areas may affect the content or meeting of the given symptoms. Total time spent caring for the patient today was 30 minutes. This includes time spent before the visit reviewing the chart, time spent during the visit, and time spent after the visit and documentation. Patient was informed and verbally consented to the use of an ambient scribe for clinic note documentation during this visit. Orders: Orders MM diagnostic mammo BI Today D36.9 - Benign neoplasm, unspecified site Free T4 (Free Thyroxine) Today R71.8 - Other abnormality of red blood cells Reticulocyte Count Today R71.8 - Other abnormality of red blood cells Vitamin D 25-OH Total Today R71.8 - Other abnormality of red blood cells IRON PROFILE Today R71.8 - Other abnormality of red blood cells ECG 12 lead EKG Today I10 - Essential (primary) hypertension US breast LT complete Today D36.9 - Benign neoplasm, unspecified site Complete Blood Count Auto Diff Today R71.8 - Other abnormality of red blood cells Comprehensive Met. Panel Today R73.02 - Impaired glucose tolerance (oral) Ferritin Today R71.8 - Other abnormality of red blood cells Lipid Panel Today E78.00 - Pure hypercholesterolemia, unspecified, R71.8 - Other abnormality of red blood cells Thyroid Stimulating Hormone Today R71.8 - Other abnormality of red blood cells Vitamin B12 and Folate Today R71.8 - Other abnormality of red blood cells
== END 2024-09-13 12:02 | disposition home or self-care (01) ==
PROVIDERS: PCP Internal Medicine
DX: R73.02 Impaired glucose tolerance (oral) (principal); I10 Essential (primary) hypertension; Z68.30 Body mass index [BMI] 30.0-30.9, adult; E66.9 Obesity, unspecified; D36.9 Benign neoplasm, unspecified site

== ENCOUNTER → 2024-09-13 11:26 | Outpatient (BNVA) | payer MEDICAID, SELFPAY | PROVIDERS: PCP Internal Medicine | DX: R73.02 Impaired glucose tolerance (oral) (principal); I10 Essential (primary) hypertension; E66.9 Obesity, unspecified; D36.9 Benign neoplasm, unspecified site | CPT/HCPCS: 99212 ==

== ENCOUNTER 2024-09-18 08:36 | Outpatient (AMB) | payer MEDICAID, SELFPAY ==
--- NOTE | 2024-09-18 08:40 | A.OFFVIS_ITS ---
Vital Signs 09/18/24 08:48 Height 5 ft 4 in Weight 177 lb 8.012 oz BMI 30.5 Intake Visit Reasons: f/u Intraductal papilloma, discuss surgery Intake Note: This patient presents for follow-up for Intraductal papilloma, discuss surgery. Pt c/o; reports discomfort. Control System Manager Required: Yes Control System Manager Language: Corporate Relations Director Services: Control System Manager Present Control System Manager Name: Nataly Information Interpreted: non-clinical & clinical Accompanied by: Daughter Allergies No Known Allergies Allergy (Verified 09/18/24 08:49) HPI HPI f/u Intraductal papilloma, discuss surgery: Details: 68-year-old female here for a follow-up for an intraductal papilloma left breast. . She actually had a mammogram last Nov, 2023 and this showed question of a mass in the retroareolar area of the left breast. She therefore underwent an ultrasound biopsy for this. This had shown an intraductal papilloma. She had been initially referred because of left nipple discharge and bleeding. She has had this for over a year before I saw her. She says that she underwent a biopsy in [facility] about a year ago and she was told that this was ?an infection. She continued to have this problem on and off for the past 2 years. She does not really feel a palpable mass. She does complain of some pain on the nipple-areolar area on the left side. Her menarche was at the age of 11. She had 9 pregnancies. She says 1 of her siblings may have had breast cancer. In view of the intraductal papilloma along with nipple discharge, I had scheduled for a lumpectomy with Hologic localizer in view of the association of this pathology with a high-grade lesions. However, she had to go to the [place] for several months. She denies any new complaints otherwise. [facility] Medical History Obesity (BMI 30.0-34.9) Intraductal papilloma Nipple discharge, bloody Social History Housing: Apartment Alcohol intake: never Patient Tobacco Use Status: Never used Tobacco Tobacco use type: Cigarette e-Cigarette/Vaping Use: Never Used Second Hand Smoke Exposure: No Current occupational status: unemployed, retired and disabled Cognitive needs: No Hearing needs: No Vision needs: No Physical Exam Vital Signs: BMI result Body Mass Index 30.5 Assessment & Plan Assessment & Plan (1) Intraductal papilloma: Code(s): D36.9 - Benign neoplasm, unspecified site Category: Medical Plan: She had undergone biopsy of this area on the left breast and this showed an intraductal papilloma. I therefore told her that in view of the associated high-grade lesions along with her bloody nipple discharge, it may be best to proceed with lumpectomy with localization. I reviewed with her the technique of this procedure. I reviewed the risks including but not limited to bleeding, infections, hematoma, postop pain, as well as the benefits and alternatives. She had agreed to have this done on her last visit but she had to go away to the [facility] so she put this off. She understands the plan and wants to proceed. Coding Level of Care Code Est Pt Level 3 (21039) Diagnoses Intraductal papilloma D36.9
[2024-09-18 08:48] VITALS: BMI 30.5
== END 2024-09-18 09:23 | disposition home or self-care (01) ==
LOC: HO.HGS 08:37
PROVIDERS: PCP Internal Medicine; Visit Provider Surgery
DX: D36.9 Benign neoplasm, unspecified site (principal)
CPT/HCPCS: 99213

== ENCOUNTER → 2024-09-18 08:36 | Outpatient (REF) | payer MEDICAID, SELFPAY ==
--- NOTE | 2024-09-18 09:25 | ECG_ITS ---
Test Reason : HTN Blood Pressure : */* mmHG Vent. Rate : 89 BPM Atrial Rate : 89 BPM P-R Int : 156 ms QRS Dur : 92 ms QT Int : 358 ms P-R-T Axes : 57 61 33 degrees QTcB Int : 435 ms Normal sinus rhythm Normal ECG No previous ECGs available Referred By: Mirta Haynes Electronically Signed By: ANGELITO CHAVEZ
[2024-09-18 09:34] LABS: MANUAL DIFF FLAG NO
[2024-09-18 09:51] LABS: Basophils Percent Auto 0.4 % (0-2); Eosinophils Absolute Auto 0.2 X10*3/uL (0.0-0.4); Eosinophils Percent Auto 1.9 % (0-4); Hematocrit 38.7 % (37.0-47.0); Hemoglobin 13.7 g/dl (12.0-16.0); Imm Gran Abs Auto 0.03 X10*3/uL (0.00-0.03); Imm Gran Pct Auto 0.4 % (0.0-0.4); Lymphocytes Percent Auto 24.9 % (20-40); Mean Corpuscular HGB Conc 35.4 g/dl (31.0-35.0); Mean Corpuscular Hemoglobin 27.3 pg (27.0-33.0); Mean Corpuscular Volume 77.1 fL (80.0-98.0); Mean Platelet Volume 10.9 fL (9.4-12.3); Monocytes Absolute Auto 0.9 X10*3/uL (0.1-1.2); Monocytes Percent Auto 10.8 % (2-11); Neutrophils Absolute Auto 4.9 x10*3/uL (2.0-8.3); Neutrophils Percent Auto 61.6 % (45-73); Platelet Count 233 X10*3/uL (160-400); Red Blood Count 5.02 X10*6/uL (4.20-5.50); Red Cell Distribution Width 15.2 % (11.0-16.0); Retic HGB Equivalent 31.8 pg (30.0-35.0)
[2024-09-18 10:55] LABS: Alanine Aminotransferase 19 U/L (0-31); Albumin Level 4.4 g/dL (3.5-5.0); Alkaline Phosphatase 85 U/L (39-117); Anion Gap 11 (12-20); Aspartate Amino Transferase 23 U/L (5-31); Bilirubin Total 0.4 mg/dL (0.0-1.0); Blood Urea Nitrogen 8 mg/dL (9-16); Calcium 9.9 mg/dL (8.4-10.2); Carbon Dioxide 28 mmol/L (22-29); Chloride 108 mmol/L (96-108); Cholesterol 192 mg/dL (<200); Estimated Glomerular Filt Rate > 60; Ferritin 109 ng/mL (10-250); Free T4 (Free Thyroxine) 0.97 ng/dL (0.71-1.85); Glucose Random 110 mg/dL (60-115); HDL Cholesterol 48 mg/dL (>40); Iron 68 mcg/dL (30-160); LDL Cholesterol Calculated 112 mg/dL (<100); Percent Iron Saturation 22 % (15-50); Potassium 4.3 mmol/L (3.3-5.1); Sodium 143 mmol/L (135-145); Thyroid Stimulating Hormone 1.83 uIU/mL (0.32-4.0); Total Iron Binding Capacity 313 mcg/dL (228-428); Triglycerides 162 mg/dL (<150); Unsaturated Iron Binding 245 ug/dL; Vitamin D 25-OH Total 24.6 ng/mL (>30)
[2024-09-18 11:01] LABS: Folate 15.1 ng/mL (> or = 4.0); Vitamin B12 708 pg/mL (200-900)
== END ==
LOC: HO.CARD 08:36
PROVIDERS: PCP Internal Medicine; Visit Provider Surgery
DX: D36.9 Benign neoplasm, unspecified site (principal); I10 Essential (primary) hypertension; R71.8 Other abnormality of red blood cells; R73.02 Impaired glucose tolerance (oral); E78.00 Pure hypercholesterolemia, unspecified
CPT/HCPCS: 36415; 80053; 80061; 82306; 82607; 82728; 82746; 83540; 84439; 84443; 85025; 85045; 93005

== ENCOUNTER → 2024-09-18 09:25 | Outpatient (BNV) | payer MEDICAID, SELFPAY | PROVIDERS: PCP Internal Medicine; Visit Provider Internal Medicine | DX: I10 Essential (primary) hypertension (principal) | CPT/HCPCS: 93010 ==

== ENCOUNTER → 2024-10-10 08:00 | Outpatient (BNV) | payer MEDICAID, SELFPAY | PROVIDERS: PCP Internal Medicine; Visit Provider Internal Medicine | DX: N63.25 Unspecified lump in the left breast, overlapping quadrants (principal) | CPT/HCPCS: 19281; 76642 ==

== ENCOUNTER 2024-10-10 08:17 | Outpatient (REF) | payer MEDICAID, SELFPAY ==
--- NOTE | ~2024-10-10 | US_ITS ---
EXAMINATION: MM MAMMOGRAM GUIDED RFID LOCALIZATION BREAST, Left CLINICAL INFORMATION: Left breast papilloma COMPARISON: Priors on PACS. TECHNIQUE NEEDLE LOC: Proper informed consent is obtained from the patient after discussion of the procedure, potential risks and complications, and alternatives including declining the procedure today. Patient was given an opportunity for questions. The patient appeared to understand. The patient consented to the procedure and signed the consent form. Preprocedural ultrasound was performed to localize the clip and mass a questioned area was seen at 9:00 however the decision was made to proceed with mammographic guidance. GUIDANCE: Digital mammography. APPROACH: Medial. TARGET: Butterfly clip. ANESTHESIA: carbonated lidocaine 1%: LOCALIZATION SYSTEM: [employer] LOCallizer Wire-Free Guidance System with 12g needle applicator. RADIOFREQUENCY TAG: ID # [id number] DERMATOTOMY: Single skin-vandana dermatotomy performed. RF Tag ID confirmed with LOCalizer Guidance System prior to placement. The skin is prepped and local anesthesia administered. The needle is positioned and RFID tag deployed. Final images demonstrate the LOCalizer RF tag to reside adjacent to the clip The patient tolerated the procedure well and had no immediate complications. Dressing placed and home instructions reviewed. US/US breast LT limited mamm only IMPRESSION: -Status post Left breast RFID localization. Electronically signed by: Irma Winter DO 10/10/2024 12:11 PM EDT
[2024-10-10] MEDS: Lidocaine HCl 1 % 20 ML VIAL 14 ML SUBCUT (09:48)
[2024-10-10] MEDS: Sodium Bicarbonate 8.4% 50 MEQ/50 ML VIAL SUBCUT (09:49)
== END 2024-10-10 08:18 | disposition home or self-care (01) ==
LOC: HO.MAMMO 08:17
PROVIDERS: PCP Internal Medicine; Visit Provider Surgery
DX: D36.9 Benign neoplasm, unspecified site (principal); D24.2 Benign neoplasm of left breast
CPT/HCPCS: 19281; 76642; C1819; J2003

== ENCOUNTER 2024-10-15 11:12 | Day surgery (SDC) | payer MEDICAID, SELFPAY ==
[2024-10-10 14:18] VITALS: BMI 30.4
--- NOTE | ~2024-10-15 | MM_ITS ---
Single left breast specimen radiograph demonstrates the marker clip and the tag within the specimen. Electronically signed by: Irma Winter DO 10/15/2024 04:12 PM EDT
--- NOTE | 2024-10-15 12:48 | MHC.SHP ---
Pre-Procedural Eval Section A - 24 Hr Update-Section A only Date of Service: 10/15/24 The patient is an INPATIENT: No Changes since office visit: No Cold of Flu in the past 2 weeks, No New Medical Problems, No Changes in Medication and No Patient answered all questions The patient has been examined within 24 hours of the surgical procedure. The History & Physical has been completed within 30 days and I have reviewed it.: Yes Section B - Complete if H&P > 30 days Chief Complaint: Benign neoplasm, unspecified site Allergies: Allergies Allergy/AdvReac Type Severity Reaction Status Date / Time No Known Allergies Allergy Verified 09/18/24 08:49 Plan I have reviewed the history and physical and performed a pertinent physical examination on my patient. No changes have occurred unless specified. Time Spent With Patient Time: Total time managing care of this patient today ____ minutes.
[2024-10-15 13:20] VITALS: BP 185/78; PULSE 95; RESP 16; TEMP 36.7
--- NOTE | 2024-10-15 13:27 | P.CONAN_ITS ---
Documented by User: Argelia Gardner NP 10/14/24 12:00 HPI - Anesthesia Eval Consult details Narrative: 69yo F for Left Breast Lumpectomy w/LOCalizer PMFSH Active Problems Active Problems: All Active Problems Microcytosis (Acute) Impaired glucose tolerance (Acute) Hypertension (Acute) Obesity (BMI 30.0-34.9) (Acute) Intraductal papilloma (Acute) Nipple discharge, bloody (Acute) Past Medical History Medical History Obesity (BMI 30.0-34.9) Intraductal papilloma Nipple discharge, bloody Social History Social History Housing: Apartment Alcohol intake: never Patient Tobacco Use Status: Never used Tobacco Tobacco use type: Cigarette e-Cigarette/Vaping Use: Never Used Second Hand Smoke Exposure: No Use of substances other than those prescribed or required for medical reasons: No Are you DNR?: No Advance Directives: No Advance Directives Information Provided: Yes Current occupational status: unemployed, retired and disabled Cognitive needs: No Hearing needs: No Vision needs: No Meds Allergies Allergy/AdvReac Type Severity Reaction Status Date / Time No Known Allergies Allergy Verified 09/18/24 08:49 Exam Height,Weight and Vital Signs: Height 5 ft 4 in Weight 80.286 kg Pertinent Lab Results Pertinent Lab Results: Laboratory Tests 09/18/24 09:33 WBC 8.0 Hgb 13.7 Hct 38.7 Plt Count 233 Sodium 143 Potassium 4.3 Chloride 108 Carbon Dioxide 28 BUN 8 L Creatinine 0.85 Narrative Narrative: EKG 09/2024 Vent. Rate : 89 BPM Atrial Rate : 89 BPM P-R Int : 156 ms QRS Dur : 92 ms QT Int : 358 ms P-R-T Axes : 57 61 33 degrees QTcB Int : 435 ms Normal sinus rhythm Normal ECG No previous ECGs available Assessment and Plan Assessment Anesthesia Assessment: Chart Reviewed Documented by User: Lupis Ramos DO 10/15/24 13:35 [facility] Past Medical History Medical History Obesity (BMI 30.0-34.9) Intraductal papilloma Nipple discharge, bloody Family History Family history of problems with anesthesia: No Surgical History History of Problems with Anesthesia: No Social History Social History Housing: Apartment Alcohol intake: never Patient Tobacco Use Status: Never used Tobacco Tobacco use type: Cigarette e-Cigarette/Vaping Use: Never Used Second Hand Smoke Exposure: No Use of substances other than those prescribed or required for medical reasons: No Are you DNR?: No Advance Directives: No Advance Directives Information Provided: Yes Current occupational status: unemployed, retired and disabled Cognitive needs: No Hearing needs: No Vision needs: No Meds Allergies Allergy/AdvReac Type Severity Reaction Status Date / Time No Known Allergies Allergy Verified 09/18/24 08:49 Exam Exam Date and Time: 10/15/24 1325 Height,Weight and Vital Signs: Height 5 ft 4 in Weight 80.286 kg Vital Signs Temperature 98.1 F 10/15/24 13:20 Pulse Rate 95 10/15/24 13:20 Respiratory Rate 16 10/15/24 13:20 Blood Pressure 185/78 H 10/15/24 13:20 Temperature 98.1 F 10/15/24 13:20 Pulse Rate 95 10/15/24 13:20 Respiratory Rate 16 10/15/24 13:20 Blood Pressure 185/78 H 10/15/24 13:20 Airway Mallampati Class: II TM Dist: >3cm Neck ROM: Full Denture: Upper and Lower Heart: S1S2 Lungs: CTAB Assessment and Plan Assessment Anesthesia Assessment: Anesthesia Plan Discussed and Chart Reviewed Final Anesthetic Review Family History of Problems with Anesthesia: No History of Problems with Anesthesia: No NPO: Yes ASA Class: II Final Preanesthetic Review: No Changes in Pt Med Stat, Meds/Allgs Chart Reviewed, Consent Obtained/Reviewed and Anes Risks/Benef Reviewed Patient Risk: Low Procedure Risk: Low Anesthetic Plan Anesthetic Plan: GA and Agree w/ Assess. and Plan Disposition: Standard PACU
[2024-10-15] MEDS: Lactated Ringers 1,000 ML 100 ML IVCONT (13:33)
[2024-10-15] MEDS: ceFAZolin Sodium/Dextrose,Iso 2 GM/50 ML PIGGYBACK IV (14:00)
[2024-10-15 14:49] VITALS: BP 177/87; PULSE 73; RESP 18; TEMP 36.6; O2SAT 98
[2024-10-15 14:50] VITALS: BP 160/88; PULSE 77; RESP 18; O2SAT 98
--- NOTE | 2024-10-15 14:54 | W.PM.OPN ---
Operative Note Operative Note Date of Service: 10/15/24 Narrative: Preop diagnosis: Intraductal papilloma, left breast Postop diagnosis: The same Procedure: Lumpectomy with the Hologic localizer Surgeon: Mehdi Underwood MD doctor assistant: MILLICENT Cardozo The patient is a 69 year old female with a history of nipple discharge, with a biopsy showing intraductal papilloma. In view of the occasional association with a high-grade lesions, along with a bloody nipple discharge, I had recommended proceeding with lumpectomy with the Hologic localizer. She understood the technique of the planned procedure as well as the risks, benefits, and alternatives She was brought to the operating room. She was placed in supine position under general anesthesia via laryngeal mask airway. The left breast was prepped and draped in usual sterile fashion. A surgical time-out was done. The patient received cefazolin 2 g IV preoperatively I used the Hologic localizer and identified the area on the skin closest to the RF ID clip. This was on the medial aspect of the left breast. This was marked and I infiltrated this with lidocaine 1%. I made a curvilinear incision on the nipple-areolar complex in the medial aspect with a blade 15. And this carried down with electrocautery through the full-thickness of the skin and subcutaneous fat. I then proceeded to use the curved Cannon scissors to gently dissect the breast tissue surrounding the RF ID clip. I was using the Hologic localizer to identify this area periodically while we were doing the dissection. We were dissecting posteriorly but noticed that the localizer clip had fallen out of the specimen on the posterior aspect. I therefore proceeded to remove more of the posterior margins. We completed dissection and marked the superior and lateral margins with sutures. I therefore sent 2 specimens, 1 which was a lumpectomy specimen and the 2nd specimen which was the additional posterior margin. We did re- ray of the lumpectomy says pain and we could see the biopsy clips. The 2nd specimen did not show any clips. We used cautery to achieve hemostasis. We irrigated. Once hemostasis was observed, I reapposed deep breast tissue with Polysorb 3-0 simple interrupted sutures. Skin closure was achieved with Polysorb 4-0 subcuticular running sutures. The area was then infiltrated with Marcaine 0.5% for postop analgesia. Dressings were applied. The procedure was completed. I brought down the specimens to the pathologist. I reviewed the above with the pathologist. We will await for the final path report as the margins were visually inspected and appeared to be clear. I also palpated the biopsy cavity and there were no other suspicious findings nor induration . The patient tolerated procedure well. There were no immediate complications. Estimated blood loss was about 50 cc. The patient was extubated without difficulty and transferred to the recovery room with stable vital signs.
[2024-10-15 14:55] VITALS: BP 156/90; PULSE 81; RESP 18; O2SAT 99
[2024-10-15 15:00] VITALS: BP 156/87; PULSE 78; RESP 18; O2SAT 100
== END 2024-10-15 15:47 | disposition home or self-care (01) ==
PROVIDERS: PCP Internal Medicine; Visit Provider Surgery
PROC: (CPT 19301; principal; 2024-10-15 14:20)
DX: D24.2 Benign neoplasm of left breast (principal); N64.52 Nipple discharge; E66.9 Obesity, unspecified; Z68.30 Body mass index [BMI] 30.0-30.9, adult; Z56.0 Unemployment, unspecified
CPT/HCPCS: 19301; 88307; 88341; 88342; 88360; J0131; J0690; J1100; J1885; J2003; J2405; J2704; J2795; J3010

== ENCOUNTER → 2024-10-15 11:12 | Outpatient (BNV) | payer MEDICAID, SELFPAY | PROVIDERS: PCP Internal Medicine; Visit Provider Surgery | DX: D05.12 Intraductal carcinoma in situ of left breast (principal) | CPT/HCPCS: 19301 ==

== ENCOUNTER 2024-10-30 11:05 | Outpatient (AMB) | payer MEDICAID, SELFPAY ==
--- NOTE | 2024-10-30 11:07 | A.OFFVIS_ITS ---
Vital Signs 10/30/24 11:15 Height 5 ft 4 in Weight 178 lb 4 oz BMI 30.6 BP 182/84 H Blood Pressure Location Lt brachial Position Sitting Pulse 84 Intake Visit Reasons: S/P Lt. breast lumpectomy w/localizer Intake Note: Patient is seen in office for post op assessment post left breast lumpectomy. 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 breast lumpectomy w/localizer: Details: She had undergone lumpectomy with Hologic localizer last 10/15/2024. She tolerated procedure well. She currently denies complaints except for some swelling on the area. [facility] [place] Medical History (Updated 10/30/24 @ 11:26 by Mehdi Underwood MD) Ductal carcinoma in situ (DCIS) of left breast DCIS (ductal carcinoma in situ) Obesity (BMI 30.0-34.9) Intraductal papilloma Nipple discharge, bloody Surgical History History of lumpectomy of left breast (10/15/24) Social History Housing: Apartment Alcohol intake: never Patient Tobacco Use Status: Never used Tobacco Tobacco use type: Cigarette e-Cigarette/Vaping Use: Never Used Second Hand Smoke Exposure: No Current occupational status: unemployed, retired and disabled Cognitive needs: No Hearing needs: No Vision needs: No Review of Systems Const Denies chills and Denies fever(s) Card Denies chest pain Resp Denies cough GI Denies abdominal pain Physical Exam Vital Signs: Last Vital Signs Pulse 84 10/30/24 11:15 BP 182/84 H 10/30/24 11:15 BMI result Body Mass Index 30.6 Const General: comfortable and no acute distress Chest Other: Lumpectomy site and left breast is well healed, some edema but no obvious hematoma, no cellulitis Resp Effort & Inspection: normal respiratory effort Cardio Rate: regular rate Assessment & Plan Assessment & Plan (1) Ductal carcinoma in situ (DCIS) of left breast: Code(s): D05.12 - Intraductal carcinoma in situ of left breast Category: Medical Plan: Status post lumpectomy. Her path report shows findings consistent with a DCIS. This is ER NE positive. Her incision is well healed. She does have some swelling on the areas so I recommended for her to do warm compresses I am going to refer her to the oncologist as she may benefit from hormonal treatment as well as radiation to the whole breast. There is no invasive c omponent so she will not need evaluation of the axillary lymph nodes I will see her again in about 6 months in the office. I reminded her to continue with her regular screening mammograms Her grand daughter was with her during the visit. Orders: Referrals Hematology & Oncology Referral D05.10 - Intraductal carcinoma in situ of unspecified breast Coding Level of Care Code Est Pt Level 3 (93625) Diagnoses Ductal carcinoma in situ (DCIS) of left breast D05.12
[2024-10-30 11:15] VITALS: BP 182/84; PULSE 84; BMI 30.6
== END 2024-10-30 11:26 | disposition home or self-care (01) ==
LOC: HO.HGS 11:06
PROVIDERS: PCP Internal Medicine; Visit Provider Surgery
DX: D05.12 Intraductal carcinoma in situ of left breast (principal)
CPT/HCPCS: 99024

== ENCOUNTER → 2024-10-30 11:05 | Outpatient (BNVA) | payer MEDICAID, SELFPAY | PROVIDERS: PCP Internal Medicine; Visit Provider Surgery | DX: Z48.3 Aftercare following surgery for neoplasm (principal); D05.12 Intraductal carcinoma in situ of left breast | CPT/HCPCS: 99212 ==

== ENCOUNTER → 2024-11-14 13:38 | Outpatient (BNV) | payer MEDICAID, SELFPAY | PROVIDERS: Visit Provider Internal Medicine Medical Oncology | DX: D05.12 Intraductal carcinoma in situ of left breast (principal) | CPT/HCPCS: 99204 ==

== ENCOUNTER 2025-01-09 10:36 | Outpatient (REF) | payer MEDICAID, SELFPAY ==
--- NOTE | ~2025-01-09 | MM_ITS ---
EXAMINATION: DXA BONE DENSITY AXIAL HISTORY: Osteopenia TECHNIQUE: [facility] Dual energy absorptiometry (DEXA) of the lumbar spine, total left hip, and femoral neck was performed. COMPARISON: There are no prior studies for comparison. FINDINGS: The bone mineral density of the lumbar spine is 1.012 g/cm2, corresponding to a T-score of -1.4, and a Z-score of 0.2. This is indicative of osteopenia. The bone mineral density of the left total hip is 0.911 g/cm2, corresponding to a T-score of -0.8, and a Z-score of 0.7. This is indicative of normal bone mineral density. The bone mineral density of the left femoral neck is 0.857 g/cm2, corresponding to a T-score of -1.3, and a Z-score of 0.4. This is indicative of osteopenia. FRACTURE RISK: The FRAX index suggests a risk of major osteoporotic fracture of 5.6%, and of hip fracture 0.8%. MM/XR DEXA axial skeleton IMPRESSION: Based on bone mineral density, and according to World Health Organization (WHO) criteria, the diagnosis is consistent with osteopenia. Statistically, 68% of repeat scans fall within 1 SD (+/- 0.010 g/cm2 for AP spine L1-L4) and 1 SD (+/- 0.012 g/cm2 for femur total) FRAX is a trademark of the [employer] [place] [facility] [employer], a World Health Organization (WHO) Collaborating Center. Electronically signed by: Nito Park MD 01/09/2025 11:23 AM EDT
== END 2025-01-09 10:37 | disposition home or self-care (01) ==
LOC: HO.MAMMO 10:36
PROVIDERS: PCP Internal Medicine; Visit Provider Internal Medicine Medical Oncology
DX: Z13.820 Encounter for screening for osteoporosis (principal); D05.12 Intraductal carcinoma in situ of left breast; M85.852 Other specified disorders of bone density and structure, left thigh
CPT/HCPCS: 77080

== ENCOUNTER → 2025-01-09 11:00 | Outpatient (BNV) | payer MEDICAID, SELFPAY | PROVIDERS: PCP Internal Medicine; Visit Provider Radiology Diagnostic Radiology | DX: E28.39 Other primary ovarian failure (principal) | CPT/HCPCS: 77080 ==